=== PATIENT | male | born 1960 | race Asian ===

== ENCOUNTER 2018-06-07 06:52 | Day surgery (SDC) | payer OTHER ==
[2018-06-07] MEDS ORDERED: MIDAZOLAM 1 MG/ML 2 ML INJ ×2 (09:12→09:14)
[2018-06-07] MEDS ORDERED: FENTAnyl 50 MCG/ML VIAL (09:13)
== END 2018-06-07 16:45 | disposition home or self-care (01) ==
LOC: GIL 06:52
DX: Z12.11 Encounter for screening for malignant neoplasm of colon (principal); K64.8 Other hemorrhoids
CPT/HCPCS: 45378